=== PATIENT | male | born 1985 | race Caucasian/White ===

== ENCOUNTER 2022-09-19 19:24 | Emergency (ER) | payer OTHER, SELFPAY ==
--- NOTE | ~2022-09-19 | CT_ITS ---
EXAMINATION: CT facial & cervical spine wo DATE: 09/19/2022 20:33 INDICATION: Head trauma, right jaw pain. New onset seizure. TECHNIQUE: Computed tomography (CT) of the facial bones and maxillofacial region was performed withou t intravenous contrast. Automated exposure control and iterative reconstruction technique were employ ed. Exam dose: 428.15 mGy-cm total exam DLP. COMPARISON: None. FINDINGS: There is a mildly displaced fracture of the lateral wall of the right maxillary sinus. The re is adjacent subcutaneous emphysema. There is a slight fluid level in the right maxillary sinus. No other facial fracture. IMPRESSION: Fracture of the lateral wall of the right maxillary sinus Reviewed, dictated and finalized at [facility] Reviewed, dictated and finalized at [facility].
--- NOTE | ~2022-09-19 | XR_ITS ---
XR chest 1V DATE: 09/19/2022 20:37 INDICATION: Seizure earlier today. Weakness. TECHNIQUE: AP chest COMPARISON: None FINDINGS: Normal heart size. No hilar or mediastinal enlargement. No pulmonary infiltrate or consolid ation, pleural effusion or pulmonary vascular congestion or pneumothorax. IMPRESSION: No active cardiopulmonary disease Reviewed, dictated and finalized at [facility].
--- NOTE | ~2022-09-19 | CT_ITS ---
EXAMINATION: CT brain wo con DATE: 09/19/2022 20:32 INDICATION: New onset seizure. Frontal headache. Head trauma. TECHNIQUE: Computed tomography (CT) of the head was performed without intravenous contrast. The mA wa s adjusted according to patient size. Iterative reconstruction technique was employed. Exam dose: 68 1.00 mGy-cm total exam DLP. COMPARISON: None FINDINGS: No intracranial mass lesion or hemorrhage or cerebrovascular accident. No midline shift or mass effect. Normal ventricular size. Normal blankenship-white matter differentiation. No subdural or epidural hematoma. The mastoid air cells and included paranasal sinuses are normally developed and aerated. No fracture or bone destruction of the cranial vault. IMPRESSION: Negative Reviewed, dictated and finalized at [facility] Reviewed, dictated and finalized at [facility]. IMPRESSION: Negative
[2022-09-19 19:27] VITALS: BP 173/119; PULSE 127; RESP 18; TEMP 37; O2SAT 97
[2022-09-19 19:57] VITALS: O2SAT 99
[2022-09-19 19:58] VITALS: O2SAT 100
[2022-09-19 20:26] LABS: Basophils Percent Auto 0.5 % (0.2-1.2); Eosinophils Absolute Auto 0.2 K/mm3 (0-0.3); Eosinophils Percent Auto 3.7 % (0-4.4); Hematocrit 43.8 % (42.0-52.0); Hemoglobin 15.3 g/dL (14.0-18.0); Immature Granulocyte Absolute 0.02 K/mm3 (0.00-0.031); Immature Granulocyte Percent A 0.3 % (0-0.5); Lymphocytes Absolute Auto 1.34 K/mm3 (0.9-3.2); Lymphocytes Percent Auto 22.5 % (18.3-44.2); Mean Corpuscular HGB Conc 34.9 g/dl (32-36); Mean Corpuscular Hemoglobin 30.8 pg (26-34); Mean Corpuscular Volume 88.1 fl (80-100); Mean Platelet Volume 10.4 fl (7.4-10.4); Monocytes Absolute Auto 0.8 K/mm3 (0.1-0.6); Monocytes Percent Auto 13.3 % (2.6-8.5); Neutrophils Absolute Auto 3.6 K/mm3 (1.3-6.7); Neutrophils Percent Auto 59.7 % (45.5-73.1); Platelet Count Result 169 k/mm3 (150-375); Red Blood Count 4.97 M/mm3 (4.6-6.20); Red Cell Distribution Width 12.3 % (11.5-14.5)
[2022-09-19] MEDS: SODIUM CHLORIDE 0.9% IV 1,000 ML 999 ML IV CONT ×2 (20:37→22:05)
[2022-09-19 20:38] LABS: Ethanol < 10 mg/dL (<10)
[2022-09-19 20:39] LABS: Alanine Aminotransferase 189 U/L (6-50); Albumin Level 5.1 g/dL (3.5-5.1); Alkaline Phosphatase 87 U/L (38-126); Anion Gap 10 mmol/L (8-16); Aspartate Amino Transferase 269 U/L (17-59); Bilirubin,Total 1.3 mg/dL (0.2-1.3); Blood Urea Nitrogen 7 mg/dL (9-20); Calcium 9.6 mg/dL (8.4-10.2); Carbon Dioxide 27 mmol/L (22-30); Chloride 98 mmol/L (98-107); Estimated CRCL calculation 144 ml/min; Estimated Glomerular Filt Rate > 60; Glucose 126 mg/dL (65-110); Magnesium 2.3 mg/dL (1.6-2.3); Potassium 3.9 mmol/L (3.4-5.0); Sodium 135 mmol/L (137-145)
[2022-09-19 20:44] LABS: Lactic Acid Reflex 4.1 mmol/L (0.7-2.0)
[2022-09-19 20:46] LABS: Appearance Urine Clear (Clear); Bacteria Urine None Seen /hpf; Bilirubin Urine Negative (Negative); Blood Urine Negative (Negative); Color Urine Yellow (Yellow); Glucose Urine UA Negative (Negative); Ketones Urine Trace mg/dL (Negative); Leukocyte Esterase Ur Trace LEU/UL (Negative); Nitrate Urine Negative (Negative); Protein Urine 1+ mg/dL (Negative); RBC Urine 0-2 /hpf (0-2); Squamous Epithelial Cell Urine None seen /hpf (Few); WBC Urine 0-5 /hpf
[2022-09-19 20:47] LABS: Add Urine Microscopic? YES
[2022-09-19 20:52] LABS: Amphetamine Screen Urine Negative (Negative); Barbiturate Screen Urine Negative (Negative); Benzodiazepines Screen Urine Negative (Negative); Cannabinoid Screen Urine Positive (Negative); Cocaine Screen Urine Negative (Negative); Methadone Screen Urine Negative (Negative); Opiate Screen Urine Negative (Negative); Phencyclidine Screen Urine Negative (Negative)
--- NOTE | 2022-09-19 21:41 | ED.GENADULT ---
HPI - General Adult General Chief complaint: Seizure Stated complaint: seizure Time Seen by Provider: 09/19/22 20:02 History of Present Illness HPI narrative: Patient 37-year-old gentleman who presents the emergency department with chief complaint of possible seizure. Patient was at home stood up and had a generalized tonic-clonic seizure activity patient was postictal afterwards reports that he struck his head and has pain in the left scalp area and also the right facial area. Related Data Allergies Allergy/AdvReac Type Severity Reaction Status Date / Time No Known Allergies Allergy Verified 09/19/22 19:27 Review of Systems Review of Systems: A 10 system review of systems was completed on the patient and is negative except for what is stated in the HPI. Nursing and ancillary documentation was reviewed. Exam Narrative: GENERAL: Well-appearing, well-nourished, and in no acute distress. HEAD: Normocephalic, there is an abrasion/contusion in the left scalp. EYES: PERRLA and EOMI. ENT: Nares clear, no rhinorrhea or epistaxis. Mucous membranes moist. There is tenderness to palpation of the right maxillary sinus region NECK: Supple. CHEST: Clear to auscultation. No respiratory distress. HEART: Regular rate and rhythm. No murmur heard. Normal peripheral pulses. ABDOMEN: Soft, nontender, nondistended, normal active bowel sounds. EXTREMITIES: Normal range of motion. No edema. SKIN: Warm, dry, no rash. NEURO: No focal deficits. Alert and oriented x3. GCS 15 PSYCH: Normal mood and affect. Course Vital Signs Vital signs: Vital Signs Temperature 37.0 C 09/19/22 19:27 Pulse Rate 127 H 09/19/22 19:27 Respiratory Rate 18 09/19/22 19:27 Blood Pressure 173/119 H 09/19/22 19:27 Pulse Oximetry 97 09/19/22 19:27 Oxygen Delivery Room Air 09/19/22 19:27 Temperature 37.0 C 09/19/22 19:27 Pulse Rate 127 H 09/19/22 19:27 Respiratory Rate 18 09/19/22 19:27 Blood Pressure 173/119 H 09/19/22 19:27 Pulse Oximetry 100 09/19/22 19:58 Oxygen Delivery Room Air 09/19/22 19:58 Medical Decision Making MDM Narrative Medical decision making narrative: Differential diagnosis includes seizure, metabolic disorder, intracranial hemorrhage/space-occupying lesion. Laboratory studies were obtained which showed a normal CBC electrolytes were within normal limits LFTs were slightly elevated with a AST of 269 and ALT of 189 bilirubin was 1.3. Lactic acid was 4.1 this is consistent with someone who is just had a seizure urinalysis did not show any evidence of UTI urine tox which is positive for cannabinoids EtOH was negative. CT head is negative CT facial bones with evidence of maxillary sinus fracture CT C-spine showed no evidence of fracture Vital Signs Vital Signs: Vital Signs Temperature 37.0 C 09/19/22 19:27 Pulse Rate 127 H 09/19/22 19:27 Respiratory Rate 18 09/19/22 19:27 Blood Pressure 173/119 H 09/19/22 19:27 Pulse Oximetry 97 09/19/22 19:27 Oxygen Delivery Room Air 09/19/22 19:27 Temperature 37.0 C 09/19/22 19:27 Pulse Rate 127 H 09/19/22 19:27 Respiratory Rate 18 09/19/22 19:27 Blood Pressure 173/119 H 09/19/22 19:27 Pulse Oximetry 100 09/19/22 19:58 Oxygen Delivery Room Air 09/19/22 19:58 Lab Data 09/19/22 20:14 09/19/22 20:14 Labs: Lab Results 09/19/22 09/19/22 09/19/22 Range/Units 20:14 20:14 20:14 WBC 6.0 (4.5-10.0) K/mm3 RBC 4.97 (4.6-6.20) M/mm3 Hgb 15.3 (14.0-18.0) g/dL Hct 43.8 (42.0-52.0) % MCV 88.1 (80-100) fl MCH 30.8 (26-34) pg MCHC 34.9 (32-36) g/dl RDW 12.3 (11.5-14.5) % Plt Count 169 (150-375) k/mm3 MPV 10.4 (7.4-10.4) fl Immature Gran % (Auto) 0.3 (0-0.5) % Neut % (Auto) 59.7 (45.5-73.1) % Lymph % (Auto) 22.5 (18.3-44.2) % [place] % (Auto) 13.3 H (2.6-8.5) % Eos % (Auto) 3.7 (0-4.4) % Baso % (Auto) 0.5 (0.2-1.2)
[2022-09-19 22:40] VITALS: BP 136/86; PULSE 86; RESP 16; O2SAT 100
[2022-09-19 23:28] LABS: Reflex Lactic Acid Yes or No Add Lactic
== END 2022-09-19 22:41 | disposition home or self-care (01) ==
PROVIDERS: Emergency Provider Emergency Medicine
DX: R56.9 Unspecified convulsions (principal); S02.40CA Maxillary fracture, right side, initial encounter for closed fracture; W18.39XA Other fall on same level, initial encounter
CPT/HCPCS: 36415; 70450; 70486; 71045; 72125; 80053; 80307; 81001; 83605; 83735; 85025; 96360; 96361; 99284; J7030

== ENCOUNTER 2023-09-13 13:33 | Emergency (ER) | payer OTHER, SELFPAY ==
[2023-09-13] VITALS (7 sets, daily range): BP systolic 124–162; BP diastolic 75–105; PULSE 80–131; RESP 14–17; TEMP 36.3–36.6; O2SAT 96–100
--- NOTE | ~2023-09-13 | CT_ITS ---
Non-contrast Head CT History: Trauma COMPARISON: 09/19/2022 Technique: Axial non-contrast imaging of the brain was performed. Dose reduction technique was used on this scan by utilizing automated exposure control and iterative reconstruction technique. The dose -length product (DLP) was 681.00 mGy-cm. Findings: There is no evidence of intracranial hemorrhage, mass lesion, or acute infarct. Brain par enchyma appears normal. The ventricles and subarachnoid spaces are normal in size. The calvarium ap pears normal. The visualized paranasal sinuses and mastoid air cells are clear. Impression: No significant abnormality seen. Reviewed, dictated and finalized at [facility]. Impression: No significant abnormality seen.
--- NOTE | ~2023-09-13 | CT_ITS ---
Noncontrast CT scan of the cervical spine Technique: Multiple contiguous axial [address] images of the cervical spine were obtained and rec onstructed in 2D sagittal and coronal planes on the acquisition scanner. Dose reduction technique was used on this scan by utilizing automated exposure control, adjustment of the mA and/or kV according to patient size. The dose-length product (DLP) was 433.07 mGy-cm. Clinical History: Pain Findings: No fractures or dislocations. Unremarkable visualized bony structures. The intervertebral disc spaces are preserved. No prevertebral soft tissue swelling. Impression: No fracture or subluxation of the cervical spine. Reviewed, dictated and finalized at location . Impression: No fracture or subluxation of the cervical spine.
--- NOTE | 2023-09-13 13:41 | ECG_ITS ---
Measurements Intervals [place] Rate: 111 P: 60 [place]: 144 QRS: 38 QRSD: 98 T: 38 QT: 334 QTc: 454 Interpretive Statements SINUS TACHYCARDIA BASELINE WANDER- II, III, AVR, AVF ABNORMAL ECG NO PREVIOUS ECG AVAILABLE FOR COMPARISON Electronically Signed On 09-13-2023 14:30:31 CDT by Srinivas Velasquez D.O.
--- NOTE | 2023-09-13 14:51 | ED.SEIZURE ---
HPI - Seizure General Chief Complaint: Seizure Stated Complaint: seizure, lac to head Time Seen by Provider: 09/13/23 14:02 History of Present Illness HPI Narrative: 38-year-old male presenting after a seizure. 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 He was told that he had had a seizure. States that he has had 3-4 prior seizures always related to alcohol withdrawal. States that he is currently trying to stop drinking. His last beverage was 3 days ago. States that his withdrawal symptoms have been improving. No longer has diarrhea or vomiting. Continues to feel anxious and tremulous. States that he has gone to AA meetings off and on in the past. Has not tried medication assisted treatment. Currently, he complains of a mild headache but declines pain medication. Denies recent infectious symptoms. Related Data Allergies Allergy/AdvReac Type Severity Reaction Status Date / Time No Known Allergies Allergy Verified 09/13/23 13:34 Review of Systems Review of Systems: All systems reviewed & are unremarkable except as noted in HPI and below Exam Narrative: GENERAL: Nontoxic, no acute distress, pleasant cooperative. HEAD: Normocephalic, 2cm linear laceration mid upper forehead/scalp EYES: PERRLA and EOMI. ENT: + tongue fasciculations NECK: Supple. no midline tenderness CHEST: No respiratory distress. HEART: Regular rate and rhythm EXTREMITIES: Normal range of motion. SKIN: Warm, dry, no rash. NEURO: No focal deficits. Alert and oriented x3. PSYCH: Normal mood and affect. Course Vital Signs Vital signs: Vital Signs Temperature 97.4 F L 09/13/23 13:29 Pulse Rate 131 H 09/13/23 13:29 Respiratory Rate 15 09/13/23 13:29 Pulse Oximetry 96 09/13/23 13:29 Temperature 98 F 09/13/23 19:02 Pulse Rate 80 09/13/23 19:02 Respiratory Rate 17 09/13/23 19:02 Blood Pressure 136/86 09/13/23 19:02 Pulse Oximetry 100 09/13/23 19:02 Oxygen Delivery Room Air 09/13/23 13:40 Procedures Laceration Laceration 1: Date: 09/16/23 Time: 21:26 Site: scalp and face Size (cm): 2 Description: linear Depth: simple, single layer Pre-repair: irrigated ====== Skin Level ====== Skin layer closed with: dermabond ====== Subcutaneous Layer ====== ====== Muscle Layer ====== ====== Tendon Layer ====== MDM - Seizure MDM Narrative Medical decision making narrative: 38-year-old male presenting after a seizure in the setting of alcohol cessation. Patient hypertensive and tachycardic on arrival. Exam remarkable for the above. CT brain and C-spine show no acute abnormalities. Discussed with the patient that I recommend admission for alcohol withdrawal the patient really prefers outpatient management. Blood work with mild transaminitis. Patient given fluids, thiamine, folic acid, Ativan. Given a dose of p.o. Librium. He is feeling much better. His vital signs have normalized. No longer tachycardic. His tremors have nearly resolved. Care coordination provided him with outpatient resources for alcohol withdrawal. Will send in for Librium taper. Advised close PCP follow-up. Strict return precautions given. Discharged in stable condition. Differential Diagnosis Differential diagnosis: Likely generalized seizure and other ( alcohol use disorder, alcohol withdrawal) Medical Records Attestation: I reviewed the patient's medical records. Lab Data Attestation: I reviewed the patient's lab results. 09/13/23 14:44 09/13/23 14:44 Labs: Lab Results 09/13/23 09/13/23 09/13/23 Range/Units 14:43 14:44 16:40 WBC 5.2 (4.5-10.0) K/mm3 RBC 4.52 L (4.6-6.20) M/mm3 Hgb 13.4 L (14.0-18.0) g/dL Hct 39.0 L (42.0-52.0) % MCV 86.3 (80-100) fl MCH 29.6 (26-34) pg MCHC 34.4 (32-36) g/dl RDW 12.4 (11.5-14.5
[2023-09-13 14:53] LABS: Basophils Percent Auto 0.2 % (0.2-1.2); Eosinophils Percent Auto 0.6 % (0-4.4); Hemoglobin 13.4 g/dL (14.0-18.0); Immature Granulocyte Absolute 0.01 K/mm3 (0.00-0.031); Immature Granulocyte Percent A 0.2 % (0-0.5); Immature Platelet Fraction Pct 7.2 % (0.9-11.2); Lymphocytes Absolute Auto 0.53 K/mm3 (0.9-3.2); Lymphocytes Percent Auto 10.1 % (18.3-44.2); Mean Corpuscular HGB Conc 34.4 g/dl (32-36); Mean Corpuscular Hemoglobin 29.6 pg (26-34); Mean Corpuscular Volume 86.3 fl (80-100); Mean Platelet Volume 10.1 fl (7.4-10.4); Monocytes Absolute Auto 0.6 K/mm3 (0.1-0.6); Monocytes Percent Auto 11.1 % (2.6-8.5); Neutrophils Absolute Auto 4.1 K/mm3 (1.3-6.7); Neutrophils Percent Auto 77.8 % (45.5-73.1); Platelet Count Result 127 k/mm3 (150-375); Red Blood Count 4.52 M/mm3 (4.6-6.20); Red Cell Distribution Width 12.4 % (11.5-14.5); White Blood Count 5.2 K/mm3 (4.5-10.0)
[2023-09-13 15:08] LABS: Alanine Aminotransferase 91 U/L (6-50); Albumin Level 4.4 g/dL (3.5-5.1); Alkaline Phosphatase 82 U/L (38-126); Anion Gap 6 mmol/L (8-16); Aspartate Amino Transferase 139 U/L (17-59); Bilirubin,Total 1.5 mg/dL (0.2-1.3); Blood Urea Nitrogen 9 mg/dL (9-20); Calcium 8.8 mg/dL (8.4-10.2); Carbon Dioxide 27 mmol/L (22-30); Chloride 100 mmol/L (98-107); Estimated CRCL calculation 198 ml/min; Estimated Glomerular Filt Rate > 60; Glucose 102 mg/dL (65-110); Potassium 3.1 mmol/L (3.4-5.0); Sodium 133 mmol/L (137-145)
[2023-09-13 15:14] LABS: Lipase 243 U/L (23-300); Magnesium 1.7 mg/dL (1.6-2.3)
--- NOTE | 2023-09-13 15:19 | PCCCNOTE ---
CC called to the ED for Alcohol withdraw assistance. Pt given information including [facility]. Pt verbalized he would contact David at [facility] when he was ready, did not want me to contact him. Pt also was needing assistance with paying the hospital bill, Pt access was notified and they went to give him information. Pt did not need anything further.
[2023-09-13] MEDS: SODIUM CHLORIDE 0.9% IV 1,000 ML 999 ML IV CONT ×2 (15:33→15:34)
[2023-09-13] MEDS: LORazepam INJ (*CRX) 2 MG/ML VIAL IV PUSH ×2 (15:33→18:49)
[2023-09-13] MEDS: THIAMINE HCL 200 MG/2 ML VIAL 100 MG IV PUSH (15:33)
[2023-09-13] MEDS: FOLIC ACID 1 MG/0.2 ML INJ IV PUSH (16:10)
[2023-09-13] MEDS: chlordiazePOXIDE (*CRX) 25 MG CAPSULE 50 MG PO (16:21)
[2023-09-13 18:00] LABS: Amphetamine Screen Urine Negative (Negative); Barbiturate Screen Urine Negative (Negative); Benzodiazepines Screen Urine Negative (Negative); Cannabinoid Screen Urine Positive (Negative); Cocaine Screen Urine Negative (Negative); Methadone Screen Urine Negative (Negative); Opiate Screen Urine Negative (Negative); Phencyclidine Screen Urine Negative (Negative)
== END 2023-09-13 19:03 | disposition home or self-care (01) ==
PROVIDERS: Emergency Provider Emergency Medicine
DX: R56.9 Unspecified convulsions (principal); S01.81XA Laceration without foreign body of other part of head, initial encounter; F10.10 Alcohol abuse, uncomplicated; W24.0XXA Contact with lifting devices, not elsewhere classified, initial encounter
CPT/HCPCS: 12011; 36415; 70450; 72125; 80053; 80307; 83690; 83735; 85025; 85055; 93005; 96361; 96374; 96375; 96376; 99284; A9270; J2060; J3411; J7030